=== PATIENT | male | born 1990 | race Two or more races ===

== ENCOUNTER → 2025-03-30 | Outpatient (CLI) | payer OTHER ==
[~2025-03-30] MED LIST: GASTROGRAFIN SOLUTION 30 ML As Ordered ONE; ISOVUE-370 76% 100 ML VIAL As Ordered ONE
== END ==
LOC: M RAD 07:45
PROVIDERS: ATTEND Physician Assistant
DX: B19.10 Unspecified viral hepatitis B without hepatic coma (principal)

== ENCOUNTER 2025-04-03 09:52 | Emergency (ER) | payer OTHER ==
[~2025-04-03] VITALS: Ht 167.6 cm; Wt 105.3 kg
[2025-04-03 12:07] LABS: BASO # 0.0 10^3/uL (0.0-0.2); BASO % 0.5 % (0.0-1.0); EOS # 0.0 10^3/uL (0.0-0.5); EOS % 0.5 % (0.0-3.0); LYMPH # 2.4 10^3/uL (1.5-5.0); LYMPH % 54.9 % (24.0-44.0); MONO # 0.4 10^3/uL (0.0-0.8); MONO % 10.2 % (2.0-8.0); NEUTROPHILS # 1.5 10^3/uL (1.5-8.5); NEUTROPHILS % 33.7 % (36.0-66.0); PLATELET COUNT, AUTOMATED 187 10^3/uL (150-450)
[2025-04-03] MEDS: NS (Normal Saline) 0.9% 1,000 ML IV ONE (12:07)
[2025-04-03] MEDS: diphenhydrAMINE 50 MG/ML VIAL IV ONE (12:08)
[2025-04-03] MEDS: KETOROLAC 30 MG/ML 1 ML VIAL IV ONE (12:08)
[2025-04-03 12:33] LABS: ALT/SGPT 118 U/L (7.0-40); AST/SGOT 66 U/L (<34); CALCIUM LEVEL 8.8 MG/DL (8.5-10.1); CARBON DIOXIDE LEVEL 29 MMOL/L (20-31); CHLORIDE LEVEL 103 MMOL/L (98-107); CREATININE FOR GFR 0.92 MG/DL (0.70-1.30); GLOMERULAR FILTRATION RATE > 90.0 (>60); POTASSIUM SERUM 4.4 MMOL/L (3.5-5.1); SODIUM LEVEL 141 MMOL/L (136-145)
[2025-04-03 13:30] VITALS: BP 125/57; TEMP 96.6; O2SAT 98
[2025-04-03] MEDS ORDERED: ISOVUE-370 76% 100 ML VIAL As Ordered ONE (13:34)
[2025-04-03] MEDS: MAG SULF 1GM/100ML (MAG RUN) 1 GM in IV 1 EA IV ONE (15:15)
[2025-04-03] MEDS: dexAMETHasone 4 MG/ML 1 ML VIAL IV ONE (15:15)
[2025-04-03] MEDS ORDERED: D5W IV ONE (16:05)
[2025-04-03] MEDS ORDERED: VALPROATE SOD IV ONE (16:05)
[2025-04-03] MEDS ORDERED: NAPR-1405 PO (18:04)
[2025-04-03] MEDS ORDERED: METH-1165 PO (18:04)
== END 2025-04-03 18:43 | disposition home or self-care (01) ==
LOC: M ED 09:52
DX: M54.50 Low back pain, unspecified (principal); R51.9 Headache, unspecified; N43.3 Hydrocele, unspecified; B16.9 Acute hepatitis B without delta-agent and without hepatic coma; Z79.1 Long term (current) use of non-steroidal anti-inflammatories (NSAID); Z79.899 Other long term (current) drug therapy
CPT/HCPCS: 70450; 70496; 76870; 80047; 80048; 80076; 85025; 93976; 96374; 96375; 99284; J1100; J1200; J1885; J2765; J3475; Q9967

== ENCOUNTER → 2025-04-27 | Outpatient (CLI) | payer OTHER ==
[~2025-04-27] MED LIST changes: -GASTROGRAFIN SOLUTION 30 ML As Ordered ONE; -ISOVUE-370 76% 100 ML VIAL As Ordered ONE; +METH-1165 PO; +NAPR-1405 PO
[2025-04-27 14:25] LABS: BASO # 0.0 10^3/uL (0.0-0.2); BASO % 0.2 % (0.0-1.0); EOS # 0.0 10^3/uL (0.0-0.5); EOS % 0.2 % (0.0-3.0); LYMPH # 1.9 10^3/uL (1.5-5.0); LYMPH % 41.3 % (24.0-44.0); MONO # 0.5 10^3/uL (0.0-0.8); MONO % 9.6 % (2.0-8.0); NEUTROPHILS # 2.3 10^3/uL (1.5-8.5); NEUTROPHILS % 48.3 % (36.0-66.0); PLATELET COUNT, AUTOMATED 180 10^3/uL (150-450)
[2025-04-27 15:03] LABS: ALT/SGPT 78 U/L (7.0-40); AST/SGOT 44 U/L (<34); CALCIUM LEVEL 9.1 MG/DL (8.5-10.1); CARBON DIOXIDE LEVEL 28 MMOL/L (20-31); CHLORIDE LEVEL 104 MMOL/L (98-107); CREATININE FOR GFR 0.96 MG/DL (0.70-1.30); GLOMERULAR FILTRATION RATE > 90.0 (>60); POTASSIUM SERUM 4.1 MMOL/L (3.5-5.1); SODIUM LEVEL 143 MMOL/L (136-145)
== END ==
LOC: M PLALAB 10:23
PROVIDERS: ATTEND Internal Medicine Infectious Disease
DX: B18.1 Chronic viral hepatitis B without delta-agent (principal)

== ENCOUNTER → 2025-08-17 | Outpatient (CLI) | payer OTHER | LOC: M RAD 07:56 | DX: H92.01 Otalgia, right ear (principal); H91.93 Unspecified hearing loss, bilateral ==